=== PATIENT | male | born 1985 | race African-American/Black ===

== ENCOUNTER 2020-03-20 21:50 | Emergency (ER) | payer SELFPAY ==
[~2020-03-20] VITALS: Ht 182.9 cm; Wt 68.0 kg
[2020-03-20] MEDS ORDERED: UNABLE MC (23:42)
== END 2020-03-20 22:18 | disposition left against medical advice (07) ==
LOC: ER 21:50
DX: N23 Unspecified renal colic (principal); Z53.21 Procedure and treatment not carried out due to patient leaving prior to being seen by health care provider